=== PATIENT | male | born 1970 | race Caucasian/White ===

== ENCOUNTER 2016-04-19 21:09 | Emergency (ER) | payer MEDICAID ==
[2016-04-19 21:18] VITALS: RESP 16
--- NOTE | 2016-04-19 22:05 | EDPHY ---
H & P Stated Complaint: thinks he has frostbite on feet; "I'm DT'ing really bad" - Personal History Current Tetanus/Diphtheria Vaccine: Yes Tetanus Vaccine Date: 2012 - Medical/Surgical History Hx Asthma: No Hx Chronic Respiratory Disease: Yes Hx Diabetes: No Hx Cardiac Disease: No Hx Renal Disease: No Hx Cirrhosis: No Hx Alcoholism: Yes Hx HIV/AIDS: No Hx Splenectomy or Spleen Trauma: No Other PMH: PMHx: alcoholism, ETOH withdrawl sz, PNA. PSHx: denies - Social History Smoking Status: Heavy smoker HPI/ROS: CHIEF COMPLAINT: Bilateral foot pain, cough HISTORY OF PRESENT ILLNESS: complains of several days history of worsening pain on both feet. Patient is homeless and has not been able to stand longterm for over 1 week. Pain in both feet is on the plantar surface. It is severe. Unable to walk due to pain. Some redness. No lacerations abrasions or trauma. No pain in the ipsilateral ankles are shins. No fever or chills. He does have a persistent cough, and reports being diagnosed with pneumonia several weeks ago. He continues to smoke cigarettes. No chest pain. No abdominal pain. No other associated complaints or modifying factors. REVIEW OF SYSTEMS: Ten systems reviewed and are negative unless otherwise noted in the HPI EXAMINATION General Appearance: Alert, no distress. Unkempt, poor hygiene Head: normocephalic, atraumatic Eyes: Pupils equal and round, no conjunctival pallor or injection ENT, Mouth: Mucous membranes moist Neck: Normal inspection, supple, non-tender Respiratory: mild, scattered rhonchi. No consolidation. Cardiovascular: Regular rate and rhythm Gastrointestinal: Abdomen is soft and nontender Back: non-tender, no bony abnormalities Neurological: A&O, nonfocal Skin: Warm and dry. Areas of erythema and blisters to the plantar surface of both feet. There is no gangrene. No cyanosis or pallor. Extremities: Tenderness to palpation of the plantar surface of bilateral feet. Range of motion is intact. No tenderness to palpation of the dorsum of the feet, ankles, shins or knees. Brisk cap refill in all 10 toes Psychiatric: Mood and affect normal DIFFERENTIAL DIAGNOSES: Including but not limited to poor hygiene, contusions, frostbite, blisters, deconditioning MDM: 23:37 Homeless individual with complaints of bilateral foot pain. He was concerned about frostbite, but there is no evidence of this on examination. He has excellent perfusion and sensation bilaterally. There is no necrosis or gangrene. There is some erythema and mild blistering. No secondary or blistering. After my initial HPI, the patient did inform the nurse that the recent diagnosis of pneumonia several weeks ago was not treated with antibiotics. Thus I will obtain a chest x-ray. Clinically, he has no evidence of pneumonia by auscultation. His vital signs are within normal limits as well. The chest x-ray has been ordered at this time. 00:30 Chest x-ray does reveal a mild /possible developing left lower lobe pneumonia. He remains hemodynamically stable with normal oxygenation on room air. He is stable for discharge home without any signs of frostbite, and no systemic illness. We will provide the prescription of doxycycline for this possible pneumonia prior to discharge home. Additionally I [facility]. Discharged home in stable condition. He will attempt to find a longterm for the evening. SUPERVISION: Independent evaluation. Case discussed with Dr. Ellsworth, but she did not evaluate the patient in person (Frank Tobin) Constitutional: Initial Vital Signs Temperature (C) 36.7 C 04/19/16 21:12 Heart Rate 106 H 04/19/16 21:12 Respiratory Rate 16 04/19/16 21:12 Blood Pressure 127/74 H 04/19/16 21:12 O2 Sat (%) 91 L 04/19/16 21:12 O2 Delivery Mode Room Air Allergies/Adverse Reactions: No Known Allergies Allergy (Verified 09/18/15 06:46) Home Medications: Medication Instructions Recorded Doxycycline Hyclate 100 mg PO BID #20 04/20/16 Medical Decision Making Other Provider: ED PA DICTATION I evaluated and participated in the management of the patient. I also evaluated the patient independently. My co-signature indicates that I have reviewed this chart and I agree with the findings and plan of care as documented. My personal H&P findings include: The patient is homeless and presents for bilateral foot pain. His exam reveals erythematous plantar aspects of both of his feet without any sign of infection. He does have a cough and a chest x-ray was obtained showing an infiltrate. We will give him a prescription of antibiotics to go home with for this. (Sharla Ellsworth) Departure - Departure Disposition: Home, Routine, Self-Care Clinical Impression: Cough, Foot pain, bilateral, CAP (community acquired pneumonia) Condition: Good Instructions: Pneumonia (ED) Additional Instructions: [facility] tomorrow. Emergency department precautions for worsening cough, Any chest pain, worsening pain, fever, chills. Referrals: Cameron Chaparro MD [Medical Doctor] - As per Instructions [facility] [Outside] - As per Instructions Prescriptions: Doxycycline Hyclate 100 mg PO BID #20
[2016-04-20] MEDS ORDERED: DOXYCYCLINE HYCLATE 100 MG CAP/TAB PO SCH
--- NOTE | 2016-04-20 00:05 | DX ---
Chest, Two Views 2325 hours History: Cough. Comparison: July 2015 Findings: Cardiac silhouette is mildly enlarged. Left lower lobe patchy opacity may represent early pneumonia. Right lung is clear. No pleural effusion. Impression: Possible early left lower lobe pneumonia.
[2016-04-20 01:13] VITALS: BP 134/77; PULSE 82; TEMP 98.4; O2SAT 94
== END 2016-04-20 01:10 | disposition home or self-care (01) ==
DX: M79.671 Pain in right foot (principal); M79.672 Pain in left foot; J18.9 Pneumonia, unspecified organism; F17.200 Nicotine dependence, unspecified, uncomplicated

== ENCOUNTER 2016-04-30 18:48 | Emergency (ER) | payer MEDICAID ==
[2016-04-30 18:59] VITALS: BP 129/70; TEMP 97.9
--- NOTE | 2016-04-30 19:18 | EDPHY ---
H & P Time Seen by Provider: 04/30/16 19:10 HPI/ROS: CHIEF COMPLAINT: Suspected alcohol intoxication HISTORY OF PRESENT ILLNESS: 45-year-old male arrives via ambulance after he was found sleeping, likely intoxicated, admitted alcohol use. [facility] however the [facility] not [facility] and was subsequently brought to the ER. He has no complaints of pain. No trauma. No assault. No fall. PHYSICAL EXAM (Prior to examination, patient consented to physical exam, hands were washed and my usual and customary physical exam procedures followed) 1) GENERAL: poorly kept. 2) HEAD: Normocephalic 3) HEENT: sclera anicteric 4) LUNGS: Breathing comfortably. 5) neuro: Patient observed ambulating without assistance with stable steady gait. Smoking Status: Heavy smoker Constitutional: Initial Vital Signs Temperature (C) 36.6 C 04/30/16 18:57 Heart Rate 92 04/30/16 18:57 Respiratory Rate 14 04/30/16 18:57 Blood Pressure 129/70 H 04/30/16 18:57 O2 Sat (%) 96 04/30/16 18:57 O2 Delivery Mode Room Air Allergies/Adverse Reactions: No Known Allergies Allergy (Verified 04/30/16 18:57) Home Medications: Medication Instructions Recorded Doxycycline Hyclate 100 mg PO BID #20 04/20/16 MDM/Departure - [facility] ED Course/Re-evaluation: Patient has no evidence of delirium tremens. No seizure. He is ambulatory. He is clinically sober. He is not allowed [facility] the [facility]. Have offered to send to [facility] which he agrees to. - Depart Disposition: Home, Routine, Self-Care Clinical Impression: Alcohol dependence Condition: Good Instructions: Alcohol Dependence (ED) Referrals: [facility] [Outside] - 1-2 days without fail
[2016-04-30 20:22] VITALS: PULSE 72; RESP 16; O2SAT 94
== END 2016-04-30 20:25 | disposition home or self-care (01) ==
DX: F10.229 Alcohol dependence with intoxication, unspecified (principal); F17.200 Nicotine dependence, unspecified, uncomplicated

== ENCOUNTER 2016-05-09 14:32 | Emergency (ER) | payer MEDICAID ==
--- NOTE | 2016-05-09 14:55 | EDPHY ---
H & P Stated Complaint: drunk in [facility], PD "couldnt take to [facility]", not underarrest. seizures hx HPI/ROS: HPI CHIEF COMPLAINT: Alcohol intoxication HISTORY OF PRESENT ILLNESS: This patient is a 45-year-old male he presents by EMS/PD for acute alcohol intoxication. He was passed out drunk the [employer] in [place]. Upon evaluation patient has no complaints he is highly intoxicated with alcohol. He is slurring his speech. Tells me drank many beers. He is asking me for sandwich. He is on a [employer] hold. Past Medical History: Pneumonia, alcoholism Past Surgical History: Denies significant surgical history Social History: Daily alcohol use, homeless denies drug use of tobacco Family History: Noncontributory ROS REVIEW OF SYSTEMS: A comprehensive 10 point review of systems is otherwise negative aside from elements mentioned in the history of present illness. Exam Constitutional intoxicated with alcohol, smells of alcohol triage nursing summary reviewed, vital signs reviewed, awake/alert. Eyes normal conjunctivae and sclera, EOMI, PERRLA. HENT normal inspection, atraumatic, moist mucus membranes, no epistaxis, neck supple/ no meningismus, no raccoon eyes. Respiratory clear to auscultation bilaterally, normal breath sounds, no respiratory distress, no wheezing. Cardiovascular rate normal, regular rhythm, no murmur, no edema, distal pulses normal. Gastrointestinal soft, non-tender, no rebound, no guarding, normal bowel sounds, no distension, no pulsatile mass. Genitourinary no CVA tenderness. Musculoskeletal no midline vertebral tenderness, full range of motion, no calf swelling, no tenderness of extremities, no meningismus, good pulses, neurovascularly intact. Skin pink, warm, & dry, no rash, skin atraumatic. Neurologic awake, alert and oriented x 3, AAOx3, moves all 4 extremities equally, motor intact, sensory intact, CN II-XII intact, normal cerebellar, normal vision, slurring speech consistent acute alcohol intoxication Psychiatric normal mood/affect. Heme/Lymph/Immune no lymphadenopathy. Differential Diagnosis: Acute alcohol intoxication, alcoholism, homelessness. Medical Decision Making: Patient with a breath alcohol. We will watch him closely for sobriety once he has a stable gait will be able to discharge him to [facility] Re-evaluation: 1527: At this time patient ambulated well to the bathroom with a steady gait no ataxia. He is, cooperative. He is clinically sober enough to be discharged to [facility]. I have ordered him a prescription for Librium. His breath alcohol was noted to be 368. Source: Patient - Personal History Current Tetanus/Diphtheria Vaccine: Unsure Current Tetanus Diphtheria and Acellular Pertussis (TDAP): Unsure Tetanus Vaccine Date: 2012 - Medical/Surgical History Hx Asthma: No Hx Chronic Respiratory Disease: Yes Hx Diabetes: No Hx Cardiac Disease: No Hx Renal Disease: No Hx Cirrhosis: No Hx Alcoholism: Yes Hx HIV/AIDS: No Hx Splenectomy or Spleen Trauma: No Other PMH: PMHx: alcoholism, ETOH withdrawl sz, PNA. PSHx: denies - Social History Smoking Status: Heavy smoker Constitutional: Initial Vital Signs Temperature (C) 36.5 C 05/09/16 14:40 Heart Rate 64 05/09/16 14:40 Respiratory Rate 16 05/09/16 14:40 Blood Pressure 111/69 05/09/16 14:40 O2 Sat (%) 95 05/09/16 14:40 O2 Delivery Mode Room Air Allergies/Adverse Reactions: No Known Allergies Allergy (Verified 04/30/16 18:57) Home Medications: Medication Instructions Recorded Doxycycline Hyclate 100 mg PO BID #20 04/20/16 Departure - Departure Disposition: Home, Routine, Self-Care Clinical Impression: Alcohol intoxication Qualifiers: Complication of substance-induced condition: uncomplicated Qualifier Code: ( F10.120) Alcohol abuse with intoxication, uncomplicated Condition: Good Instructions: Alcohol Intoxication (ED), Abuse of Alcohol (ED) Referrals: NONE *PRIMARY CARE P,. [Primary Care Provider] - As per Instructions
[2016-05-09] MEDS ORDERED: CHLORDIAZEPOXIDE 25MG PREPK#6 BTL TAKEHOME ONE (15:04)
[2016-05-09 19:54] VITALS: BP 136/82; PULSE 94; RESP 18; TEMP 97.9; O2SAT 93
== END 2016-05-09 19:55 | disposition home or self-care (01) ==
DX: F10.120 Alcohol abuse with intoxication, uncomplicated (principal); F17.200 Nicotine dependence, unspecified, uncomplicated

== ENCOUNTER 2016-07-21 04:12 | Emergency (ER) | payer MEDICAID ==
[2016-07-21 04:24] VITALS: PULSE 89; RESP 16; O2SAT 93
--- NOTE | 2016-07-21 04:43 | EDPHY ---
H & P Stated Complaint: fell in AM R ankle injury Time Seen by Provider: 07/21/16 04:28 HPI/ROS: Chief Complaint: Right ankle pain HPI: 45-year-old homeless male states that at 10 o'clock yesterday morning he tried to stand up and twisted his right ankle with the sudden onset of pain. He has been unable to weight bear on that ankle since that time. Denies any prior injuries. Did not fall or hit his head. No numbness or weakness. ROS: 10 point Review of Systems is negative except as noted in the HPI. PMH: Denies Medications: None Allergies: No known drug allergies Social History: Positive for smoking, alcohol, Family History: non-contributory Physical Exam: Gen: Awake, Alert, slurred speech HEENT: Nose: no rhinorrhea Eyes: PERRLA, EOMI Mouth: Moist mucosa Neck: Supple, no JVD Chest: nontender, lungs clear to auscultation Heart: S1, S2 normal, no murmur Abd: Soft, non-tender, no guarding Back: no CVA tenderness, no midline tenderness Ext: no edema, patient has no ankle deformity. He has got no swelling. He is complaining of severe pain whenever I palpate even very lightly any portion of his right lower leg Skin: no rash Neuro: CN II-XII intact, Sensation grossly intact, Strength 5/5 in bilateral upper and lower extremities - Personal History Current Tetanus/Diphtheria Vaccine: Yes Current Tetanus Diphtheria and Acellular Pertussis (TDAP): Yes Tetanus Vaccine Date: 2015 - Medical/Surgical History Hx Asthma: No Hx Chronic Respiratory Disease: Yes Hx Diabetes: No Hx Cardiac Disease: No Hx Renal Disease: No Hx Cirrhosis: No Hx Alcoholism: Yes Hx HIV/AIDS: No Hx Splenectomy or Spleen Trauma: No Other PMH: PMHx: alcoholism, ETOH withdrawl sz, PNA. PSHx: denies - Social History Smoking Status: Heavy smoker Constitutional: Initial Vital Signs Temperature (C) 36.6 C 07/21/16 04:22 Heart Rate 89 07/21/16 04:22 Respiratory Rate 16 07/21/16 04:22 Blood Pressure 121/67 H 07/21/16 04:22 O2 Sat (%) 93 07/21/16 04:22 O2 Delivery Mode Room Air Allergies/Adverse Reactions: No Known Allergies Allergy (Verified 07/21/16 04:25) Home Medications: Medication Instructions Recorded Doxycycline Hyclate 100 mg PO BID #20 04/20/16 Medical Decision Making - Diagnostics Imaging: Right ankle x-rays negative. Independently viewed by me ED Course/Re-evaluation: Patient with right ankle sprain. Will place him in an air splint and give him ibuprofen here. Refer to follow [facility] with [facility]. Departure - Departure Disposition: Home, Routine, Self-Care Clinical Impression: Ankle sprain Condition: Good Instructions: Ankle Sprain (ED), Ankle Stirrup Splint (ED) Additional Instructions: Follow up with [facility] in 3-4 days if symptoms are not improving. You may take ibuprofen and acetaminophen as needed for pain. Referrals: NONE *PRIMARY CARE P,. [Primary Care Provider] - As per Instructions [facility],. [Clinic] - As per Instructions
[2016-07-21 06:17] VITALS: BP 118/77; TEMP 97.7
== END 2016-07-21 06:17 | disposition home or self-care (01) ==
LOC: EDUNIT#
DX: S93.401A Sprain of unspecified ligament of right ankle, initial encounter (principal); F17.200 Nicotine dependence, unspecified, uncomplicated; X58.XXXA Exposure to other specified factors, initial encounter; Y93.89 Activity, other specified
CPT/HCPCS: L4350

== ENCOUNTER 2016-08-24 17:56 | Emergency (ER) | payer MEDICAID ==
--- NOTE | 2016-08-24 18:06 | EDPHY ---
H & P HPI/ROS: CHIEF COMPLAINT: alcohol-withdrawal seizure HISTORY OF PRESENT ILLNESS: The patient is a 45 y/o male arriving from the retirement in [employer] custody after a reported seizure this evening. He has a history of alcohol withdrawal seizures and states his last alcoholic drink was yesterday afternoon, almost 24 hours ago. He endorses biting his tongue during event tonight. He is only somewhat contributory during assessment and unwilling to discuss his medical history in any detail. REVIEW OF SYSTEMS: A ten point review of systems was performed and is negative with the exception of the items mentioned in the HPI. He notes chronic cough, perhaps slightly worse recently. Not SOB. No fever. No chest pain. - Personal History Tetanus Vaccine Date: 2015 - Medical/Surgical History PMH: 1. alcohol abuse 2. alcohol withdrawal seizures Hx Asthma: No Hx Chronic Respiratory Disease: Yes Hx Diabetes: No Hx Cardiac Disease: No Hx Renal Disease: No Hx Cirrhosis: No Hx Alcoholism: Yes Hx HIV/AIDS: No Hx Splenectomy or Spleen Trauma: No Other PMH: PMHx: alcoholism, ETOH withdrawl sz, PNA. PSHx: denies - Social History Smoking Status: Heavy smoker Alcohol Use: Heavy Additional Social History: Currently in police custody. - Physical Exam Exam: General Appearance: Alert. Vital signs reviewed. BP 147/101 Head: Normocephalic, atraumatic. Eyes: Pupils equal and round, no conjunctival injection, no discharge. Anicteric. ENT, Mouth: Mucous membranes are moist, no oropharyngeal erythema or edema. Tongue is swollen on left anterior side and bruised, no [id number] cut , no active bleeding Neck: No lymphadenopathy, supple. Respiratory: Lungs are distant but clear to auscultation; no wheezes, rales, or rhonchi. Cardiovascular: Regular rate and rhythm; no murmur, rub, or gallop. Gastrointestinal: Abdomen is soft and nontender, no masses or organomegaly, bowel sounds normal. Skin: Warm and dry, no rashes on exposed skin, normal color. Back: Nontender to palpation over the thoracolumbar spine. No CVAT. Extremities: No lower extremity edema, no calf tenderness or swelling. Neurological: Alert and oriented. Moving all four extremities easily and equally. PERRL. EOMI. Facial expressions symmetric. Tongue midline. Psychiatric: Normal affect. Constitutional: Initial Vital Signs Temperature (C) 36.7 C 08/24/16 17:56 Heart Rate 84 08/24/16 17:56 Respiratory Rate 16 08/24/16 17:56 Blood Pressure 141/90 H 08/24/16 17:56 O2 Sat (%) 97 08/24/16 17:56 O2 Delivery Mode Room Air Allergies/Adverse Reactions: No Known Allergies Allergy (Verified 07/21/16 04:25) Home Medications: Medication Instructions Recorded Doxycycline Hyclate 100 mg PO BID #20 04/20/16 Medical Decision Making - Diagnostics Imaging: Discussed imaging studies w/ yardage caller Radiologist, I viewed and interpreted images myself ED Course/Re-evaluation: IV established. Labs drawn including CBC, CHEM, EtOH. 1mg IV Ativan administered. Chest x-ray ordered. Chest x-ray shows bronchitis. No pneumonia/infiltrate. No seizure activity in ED. He remained alert and appropriate. I do think that he is withdrawing from alcohol, hence the seizure. He can be treated for withdrawal symptoms at the retirement. His tongue injury does not require suturing or other treatment. Differential Diagnosis: I considered a ddx that includes but is not limited to alcohol withdrawal seizure, seizure disorder, intracranial injury/hemorrhage, medication adverse effect, electrolyte disturbance. - Data Points Laboratory Results: Laboratory Results 08/24/16 18:50 08/24/16 18:30 Medications Given: Discontinued Medications Sodium Chloride (Ns) 1,000 mls @ 0 mls/hr IV ONCE ONE PRN Reason: Wide Open Stop: 08/24/16 18:53 Last Admin: 08/24/16 18:56 Dose: 1,000 mls Lorazepam (Ativan Injection) 1 mg IVP EDNOW ONE Stop: 08/24/16 18:36 Last Admin: 08/24/16 18:52 Dose: 1 mg Departure - Departure Disposition: Home, Routine, Self-Care Clinical Impression: Alcohol withdrawal Qualifiers: Complication of substance-induced condition: with unspecified complication Qualified Code(s): F10.239 - Alcohol dependence with withdrawal, unspecified Alcohol withdrawal seizure Qualifiers: Complication of substance-induced condition: uncomplicated Qualified Code(s): F10.230 - Alcohol dependence with withdrawal, uncomplicated Abrasion of tongue Qualifiers: Encounter type: initial encounter Qualified Code(s): S00.512A - Abrasion of oral cavity, initial encounter Condition: Good Instructions: Alcohol Withdrawal (ED) Additional Instructions: Medically clear for retirement. Use Librium as prescribed for withdrawal symptoms. Referrals: [facility],. [Clinic] - As per Instructions Report Scribed for: Kaylyn Almaguer Report Scribed by: Marisa Hudson Date of Report: 08/24/16 Time of Report: 18:25 Physician Review and Approval Statement: 08/24/16 18:06 Portions of this note were transcribed by the quality engineer medical device. I, Dr. Kaylyn Almaguer, personally performed the history, physical exam, and medical decision- making; and confirmed the accuracy of the information in the transcribed note.
[2016-08-24 18:07] VITALS: RESP 16
[2016-08-24] MEDS ORDERED: LORazepam 2 MG/ML INJ IVP ONE (18:35)
[2016-08-24] MEDS ORDERED: NS 1,000 ML IV ONE (18:52)
[2016-08-24 18:59] LABS: % IMMATURE GRANULYOCYTES 0.4 % (0.0-1.1); ABSOLUTE IMMATURE GRANULOCYTES 0.03 10^3/uL (0.00-0.10); ADD DIFF? NO; ADD MORPH? NO; ADD SCAN? NO; ATYPICAL LYMPHOCYTE FLAG 0 (0-99); FRAGMENT RBC FLAG 0 (0-99); HEMATOCRIT 42.5 % (40.0-51.0); HEMOGLOBIN 14.5 g/dL (13.7-17.5); LEFT SHIFT FLG 0 (0-99); LIPEMIA HEMOLYSIS FLAG 90 (0-99); MEAN CELL HEMOGLOBIN 30.5 pg (27.9-34.1); MEAN CELL HEMOGLOBIN CONCENTR. 34.1 g/dL (32.4-36.7); MEAN CELL VOLUME 89.5 fL (81.5-99.8); MEAN PLATELET VOLUME 9.3 fL (8.7-11.7); PLATELET CLUMPS FLAG 0 (0-99); RED BLOOD CELL COUNT 4.75 10^6/uL (4.40-6.38); RED CELL DISTRIBUTION WIDTH 13.9 % (11.5-15.2)
[2016-08-24 19:07] LABS: PLATELET COUNT 48 10^3/uL (150-400)
[2016-08-24 19:17] LABS: ANION GAP 11 mEq/L (8-16); CALCIUM 9.5 mg/dL (8.5-10.4); CARBON DIOXIDE 24 mEq/l (22-31); CHLORIDE 102 mEq/L (97-110); CREATININE 0.7 mg/dL (0.7-1.3); ETHANOL SERUM < 10 mg/dL (0-10); GLOMERULAR FILTRATION RATE > 60; GLUCOSE 141 mg/dL (70-100); POTASSIUM 4.2 mEq/L (3.5-5.2); SODIUM 137 mEq/L (134-144)
[2016-08-24 19:22] LABS: PLATELET ESTIMATE DECREASED (ADEQ)
[2016-08-24 19:56] VITALS: BP 134/64; PULSE 74; TEMP 97.9; O2SAT 96
== END 2016-08-24 19:56 | disposition home or self-care (01) ==
DX: F10.230 Alcohol dependence with withdrawal, uncomplicated (principal); S00.512A Abrasion of oral cavity, initial encounter; F17.200 Nicotine dependence, unspecified, uncomplicated; X58.XXXA Exposure to other specified factors, initial encounter
CPT/HCPCS: 96374; G0480; J2060